=== PATIENT | female | born 1935 | race Caucasian/White ===

== ENCOUNTER 2018-01-21 09:51 | Inpatient (IN) | payer MEDICARE, BC ==
[~2018-01-21] VITALS: Ht 167.6 cm; Wt 94.1 kg
[2018-01-21] MEDS ORDERED: normal saline 1000ML IV soln IVB ONE (10:15)
[2018-01-21] MEDS ORDERED: ondansetron/PF 4mg/2ml inj IV ONE (10:15)
[2018-01-21] MEDS ORDERED: hydrocortisone sod succ/PF 100mg/2ml inj. IV ONE (10:15)
[2018-01-21 11:11] LABS: BASOPHILS % (AUTO) 0.3 % (0-1); EOSINOPHILS % (AUTO) 0 % (0-6); HEMATOCRIT 40.3 % (35.0-45.0); HEMOGLOBIN 13.9 g/dl (12.0-16.0); LYMPHOCYTES # (AUTO) 1.2 X10'3 (1.1-4.8); LYMPHOCYTES % (AUTO) 12.6 % (21-51); MEAN CORPUSCULAR HGB CONC 34.5 % (33.0-36.5); MEAN CORPUSCULAR VOLUME 92.8 FL (78-98); MEAN PLATELET VOLUME 9.1 FL (7.4-10.4); MONOCYTES % (AUTO) 9.9 % (2-12); NEUTROPHILS # (AUTO) 7.5 X10'3 (1.8-7.7); NEUTROPHILS % (AUTO) 77.2 % (42-75); PLATELET COUNT 177 X10'3 (140-440); RED BLOOD COUNT 4.34 X10'6 (4.20-5.60); RED CELL DISTRIBUTION WIDTH 13.1 % (11.5-14.5); WHITE BLOOD COUNT 9.7 X10'3 (4.5-11.0)
[2018-01-21 11:25] LABS: ALANINE AMINOTRANSFERASE 14 U/L (12-78); ALBUMIN 2.5 G/DL (3.4-5.0); ALBUMIN/GLOBULIN RATIO 0.7 (1.1-1.5); ALKALINE PHOSPHATASE 58 IU/L (46-116); ANION GAP 6 (8-16); ASPARTATE AMINO TRANSFERASE 16 U/L (10-37); BILIRUBIN,TOTAL 0.9 MG/DL (0.1-1.0); BLOOD UREA NITROGEN 14 MG/DL (7-18); BUN/CREATININE RATIO 13.5 (6.6-38.0); CALCIUM 8.2 MG/DL (8.5-10.1); CHLORIDE 101 MMOL/L (99-107); CREATININE 1.04 MG/DL (0.40-0.90); GLUCOSE 100 MG/DL (70-104); SODIUM 134 MMOL/L (135-145); eGFR 51 ML/MIN
[2018-01-21 11:39] LABS: CLARITY,URINE SLIGHTLY CLOUDY (Clear); COLOR,URINE YELLOW (Yellow); GLUCOSE, URINE NEGATIVE (Neg); KETONES,URINE 15 mg/dl (Neg); LEUKOCYTE ESTERASE ,URINE LARGE (Neg); NITRITES, URINE POSITIVE (Neg); OCCULT BLOOD,URINE SMALL (Neg); PROTEIN,URINE NEGATIVE (Neg); UROBILINOGEN,URINE 0.2 E.U/dL (0.2-1.0)
[2018-01-21 11:48] LABS: UA COLLECTION TYPE STRAIGHT CATH
[2018-01-21 11:52] LABS: MUCUS STRANDS FEW /LPF (Neg); SQUAMOUS EPITHELIAL CELL,UR FEW /LPF (FEW)
[2018-01-21 11:53] LABS: WBC CLUMPS,URINE MODERATE /HPF (NEGATIVE)
[2018-01-21 11:56] LABS: BACTERIA,URINE 2+ /HPF (Neg); RBC,URINE 0-2 /HPF (0-2); WBC,URINE TNTC /HPF (0-4)
[2018-01-21] MEDS ORDERED: gentamicin inj 350 MG in normal saline 100ml IV soln 100 ML IV STA (12:00)
[2018-01-21] MEDS ORDERED: mag hydrox/Alum hydrox/simeth 30ml oral suspension PO PRN (13:10)
[2018-01-21] MEDS ORDERED: HYDROcodone/acetaminophen 5mg/325mg tablet PO PRN (13:10)
[2018-01-21] MEDS ORDERED: ondansetron/PF 4mg/2ml inj IV PRN (13:10)
[2018-01-21] MEDS ORDERED: morphine 2 MG/ML inj. syringe IV PRN (13:10)
[2018-01-21] MEDS ORDERED: acetaminophen 325mg tablet PO PRN (13:10)
[2018-01-21] MEDS ORDERED: METH125V13 IM (13:38)
[2018-01-21] MEDS ORDERED: HYDR10TA PO ×2 (13:38→23:13)
[2018-01-21] MEDS ORDERED: CEPH500C5 PO (13:38)
[2018-01-21] MEDS ORDERED: CARB1DRO12 EACHEYE (13:38)
[2018-01-21] MEDS ORDERED: PRAS25CA7 PO (13:38)
[2018-01-21] MEDS ORDERED: CHOL10002 PO (13:38)
[2018-01-21] MEDS ORDERED: FLO0.1T PO (13:38)
[2018-01-21] MEDS: normal saline 1000ml 1,000 ML IV SCH (13:56)
[2018-01-21] MEDS: ertapenem sod inj 1 GM in normal saline 100ml IVPB IV SCH (13:57)
[2018-01-21] MEDS ORDERED: methylPREDNISolone sod succ 125mg/2ml vial IM ONE (14:35)
[2018-01-21 15:00] VITALS: BP 143/67
[2018-01-21] MEDS ORDERED: methylPREDNISolone sod succ 125mg/2ml vial IV ONE (15:15)
[2018-01-21] MEDS ORDERED: meropenem inj 1 GM in normal saline 100ml IV soln 100 ML IV SCH (16:00)
[2018-01-21 18:00] VITALS: BP 120/48
[2018-01-21] MEDS: heparin, porcine 5000 units/ml vial SQ SCH (20:20)
[2018-01-21] MEDS: hydrocortisone 10mg tablet PO SCH (20:21)
[2018-01-21] MEDS ORDERED: LEVO100T9 PO (23:13)
[2018-01-22] VITALS: BP 127/61
[2018-01-22] MEDS: normal saline 1000ml 1,000 ML IV SCH ×3 (03:30→19:28)
[2018-01-22 05:04] LABS: BASOPHILS % (AUTO) 0.4 % (0-1); EOSINOPHILS % (AUTO) 0 % (0-6); HEMATOCRIT 40.2 % (35.0-45.0); HEMOGLOBIN 13.8 g/dl (12.0-16.0); LYMPHOCYTES # (AUTO) 0.9 X10'3 (1.1-4.8); LYMPHOCYTES % (AUTO) 14.5 % (21-51); MEAN CORPUSCULAR HEMOGLOBIN 31.9 PG (27.0-31.0); MEAN CORPUSCULAR HGB CONC 34.4 % (33.0-36.5); MEAN CORPUSCULAR VOLUME 92.9 FL (78-98); MONOCYTES # (AUTO) 0.4 X10'3 (0-0.9); NEUTROPHILS # (AUTO) 5.1 X10'3 (1.8-7.7); NEUTROPHILS % (AUTO) 79.1 % (42-75); PLATELET COUNT 184 X10'3 (140-440); RED BLOOD COUNT 4.32 X10'6 (4.20-5.60); WHITE BLOOD COUNT 6.5 X10'3 (4.5-11.0)
[2018-01-22 05:20] LABS: ALBUMIN 2.4 G/DL (3.4-5.0); ANION GAP 9 (8-16); BLOOD UREA NITROGEN 16 MG/DL (7-18); BUN/CREATININE RATIO 21.1 (6.6-38.0); CALCIUM 8.5 MG/DL (8.5-10.1); CHLORIDE 104 MMOL/L (99-107); CREATININE 0.76 MG/DL (0.40-0.90); GLUCOSE 147 MG/DL (70-104); POTASSIUM 3.8 MMOL/L (3.5-5.1); SODIUM 135 MMOL/L (135-145); TOTAL CARBON DIOXIDE 22.3 MMOL/L (24-32); eGFR 73 ML/MIN
[2018-01-22] MEDS ORDERED: normal saline 1000ml 1,000 ML IV ONE (06:30)
[2018-01-22] MEDS: heparin, porcine 5000 units/ml vial SQ SCH ×2 (08:00→20:17)
[2018-01-22] MEDS ORDERED: DHEA 25mg tablet PO SCH (08:00)
[2018-01-22] MEDS ORDERED: hydrocortisone 10mg tablet PO SCH ×3 (08:30→17:30)
[2018-01-22] MEDS: hydrocortisone 10mg tablet PO SCH (08:34)
[2018-01-22] MEDS: fludrocortisone acetate 0.1mg tablet PO SCH (08:34)
[2018-01-22] MEDS: ertapenem sod inj 1 GM in normal saline 100ml IVPB IV SCH (08:35)
[2018-01-22] MEDS: polyvinyl alcohol ophthalmic drops 15ml bottle EACHEYE SCH (08:35)
[2018-01-22] MEDS ORDERED: furosemide 40mg/4ml inj IV ONE (09:15)
[2018-01-22] MEDS ORDERED: furosemide 40mg/4ml inj ONE (09:19)
[2018-01-22 11:00] VITALS: BP 112/76
[2018-01-22] MEDS ORDERED: hydrocortisone 10mg tablet PO ONE (13:10)
[2018-01-22 14:10] LABS: ALANINE AMINOTRANSFERASE 14 U/L (12-78); ALBUMIN 2.6 G/DL (3.4-5.0); ALBUMIN/GLOBULIN RATIO 0.7 (1.1-1.5); ALKALINE PHOSPHATASE 56 IU/L (46-116); ANION GAP 10 (8-16); ASPARTATE AMINO TRANSFERASE 18 U/L (10-37); BILIRUBIN,TOTAL 0.4 MG/DL (0.1-1.0); BLOOD UREA NITROGEN 15 MG/DL (7-18); BUN/CREATININE RATIO 15.5 (6.6-38.0); CALCIUM 8.7 MG/DL (8.5-10.1); CHLORIDE 105 MMOL/L (99-107); CREATININE 0.97 MG/DL (0.40-0.90); GLUCOSE 111 MG/DL (70-104); PHOSPHORUS 1.8 MG/DL (2.3-4.5); POTASSIUM 3.4 MMOL/L (3.5-5.1); SODIUM 139 MMOL/L (135-145); TOTAL CARBON DIOXIDE 24.4 MMOL/L (24-32); TOTAL PROTEIN 6.5 G/DL (6.4-8.2); eGFR 55 ML/MIN
[2018-01-22] MEDS ORDERED: potassium Cl 20 mEq SR tablet PO PRN ×2 (14:40)
[2018-01-22] MEDS ORDERED: potassium Cl 40MEQ/NS 500ml 500 ML IV PRN ×2 (14:40)
[2018-01-22 15:00] VITALS: BP 136/69
[2018-01-22] MEDS ORDERED: diltiazem 5mg/ml 5ml inj. IV ONE (18:30)
[2018-01-22] MEDS ORDERED: diltiazem-NS 100mg/100ml 100 ML IV SCH (18:30)
[2018-01-22 19:00] VITALS: BP 128/56
[2018-01-22 23:00] VITALS: BP 104/54
[2018-01-23 03:00] VITALS: BP 90/51
[2018-01-23] MEDS ORDERED: diltiazem 30mg tablet PO ONE (03:00)
[2018-01-23] MEDS: normal saline 1000ml 1,000 ML IV SCH ×2 (05:07→15:10)
[2018-01-23 06:00] VITALS: BP 101/63
[2018-01-23 06:05] LABS: BASOPHILS % (AUTO) 0.3 % (0-1); EOSINOPHILS # (AUTO) 0.1 X10'3 (0-0.9); EOSINOPHILS % (AUTO) 0.7 % (0-6); HEMATOCRIT 39.1 % (35.0-45.0); HEMOGLOBIN 13.4 g/dl (12.0-16.0); LYMPHOCYTES # (AUTO) 2.1 X10'3 (1.1-4.8); LYMPHOCYTES % (AUTO) 21.2 % (21-51); MEAN CORPUSCULAR HEMOGLOBIN 31.9 PG (27.0-31.0); MEAN CORPUSCULAR HGB CONC 34.4 % (33.0-36.5); MEAN CORPUSCULAR VOLUME 92.8 FL (78-98); MEAN PLATELET VOLUME 9.6 FL (7.4-10.4); MONOCYTES # (AUTO) 1.1 X10'3 (0-0.9); MONOCYTES % (AUTO) 10.9 % (2-12); NEUTROPHILS # (AUTO) 6.7 X10'3 (1.8-7.7); NEUTROPHILS % (AUTO) 66.9 % (42-75); PLATELET COUNT 186 X10'3 (140-440); RED BLOOD COUNT 4.21 X10'6 (4.20-5.60)
[2018-01-23 06:10] LABS: ALBUMIN 2.1 G/DL (3.4-5.0); ANION GAP 6 (8-16); BLOOD UREA NITROGEN 19 MG/DL (7-18); BUN/CREATININE RATIO 23.8 (6.6-38.0); CALCIUM 8.3 MG/DL (8.5-10.1); CHLORIDE 107 MMOL/L (99-107); GLUCOSE 102 MG/DL (70-104); POTASSIUM 3.7 MMOL/L (3.5-5.1); SODIUM 138 MMOL/L (135-145); eGFR 69 ML/MIN
[2018-01-23] MEDS ORDERED: diltiazem 30mg tablet PO SCH (08:00)
[2018-01-23] MEDS: fludrocortisone acetate 0.1mg tablet PO SCH (08:09)
[2018-01-23] MEDS: polyvinyl alcohol ophthalmic drops 15ml bottle EACHEYE SCH (08:09)
[2018-01-23] MEDS: hydrocortisone 10mg tablet PO SCH (08:09)
[2018-01-23] MEDS: levoTHYROXINE 100mcg tablet PO SCH (08:09)
[2018-01-23] MEDS: heparin, porcine 5000 units/ml vial SQ SCH ×2 (08:10→20:43)
[2018-01-23] MEDS: ertapenem sod inj 1 GM in normal saline 100ml IVPB IV SCH (08:11)
[2018-01-23 11:00] VITALS: BP 128/64
[2018-01-23] MEDS ORDERED: potassium phosphate inj 15 MMOL in normal saline 250ml IV soln 245 ML IV ONE (13:10)
[2018-01-23] MEDS: aspirin 81mg tablet.DR PO SCH (14:19)
[2018-01-23] MEDS: diltiazem CD 120mg capsule (once-daily) PO SCH (14:19)
[2018-01-23] MEDS: doxycycline hyclate 100mg tablet.DR PO SCH ×2 (14:19→20:43)
[2018-01-23 15:00] VITALS: BP 110/62
[2018-01-23] MEDS ORDERED: hydrocortisone 10mg tablet PO SCH ×2 (17:00→21:00)
[2018-01-23 19:00] VITALS: BP 132/7
[2018-01-23] MEDS: lactobacillus rhamnosus 10,000 MMU CELLS/CAPSULE PO SCH (20:43)
[2018-01-23] MEDS: Neutra Phos packet PO SCH (20:44)
[2018-01-23 23:00] VITALS: BP 119/64
[2018-01-24] MEDS: normal saline 1000ml 1,000 ML IV SCH ×2 (01:07→11:28)
[2018-01-24 03:00] VITALS: BP 146/69
[2018-01-24 05:41] LABS: ALBUMIN 2.3 G/DL (3.4-5.0); ANION GAP 10 (8-16); BLOOD UREA NITROGEN 18 MG/DL (7-18); BUN/CREATININE RATIO 21.2 (6.6-38.0); CALCIUM 8.1 MG/DL (8.5-10.1); CHLORIDE 108 MMOL/L (99-107); CREATININE 0.85 MG/DL (0.40-0.90); GLUCOSE 96 MG/DL (70-104); MAGNESIUM 1.9 MG/DL (1.5-2.4); PHOSPHORUS 2.5 MG/DL (2.3-4.5); POTASSIUM 3.7 MMOL/L (3.5-5.1); SODIUM 142 MMOL/L (135-145); TOTAL CARBON DIOXIDE 24.2 MMOL/L (24-32); eGFR 64 ML/MIN
[2018-01-24 06:00] VITALS: BP 150/76
[2018-01-24] MEDS: levoTHYROXINE 100mcg tablet PO SCH (07:16)
[2018-01-24] MEDS: doxycycline hyclate 100mg tablet.DR PO SCH (07:37)
[2018-01-24] MEDS: diltiazem CD 120mg capsule (once-daily) PO SCH (07:37)
[2018-01-24] MEDS: lactobacillus rhamnosus 10,000 MMU CELLS/CAPSULE PO SCH (07:37)
[2018-01-24] MEDS: fludrocortisone acetate 0.1mg tablet PO SCH (07:38)
[2018-01-24] MEDS: hydrocortisone 10mg tablet PO SCH (07:38)
[2018-01-24] MEDS: Neutra Phos packet PO SCH ×2 (07:38→13:00)
[2018-01-24] MEDS: aspirin 81mg tablet.DR PO SCH (07:38)
[2018-01-24] MEDS: polyvinyl alcohol ophthalmic drops 15ml bottle EACHEYE SCH (07:39)
[2018-01-24] MEDS: heparin, porcine 5000 units/ml vial SQ SCH (07:39)
[2018-01-24 11:00] VITALS: BP 135/64
[2018-01-24] MEDS ORDERED: CARCD120C PO (11:31)
[2018-01-24] MEDS ORDERED: DOXY-200 PO (11:31)
[2018-01-24] MEDS ORDERED: ASPI-1071 PO (11:31)
== END 2018-01-24 13:50 | disposition home or self-care (01) | DRG 690 ==
LOC: ER 09:52 → ED HOLD 13:07 → SUR 3N 14:28 → PCU 3S 01-22 15:25
PROVIDERS: ADMIT Family Medicine; ATTEND Internal Medicine
PROC: CT231ZZ Tomographic (Tomo) Nuclear Medicine Imaging of Kidneys, Ureters and Bladder using Technetium 99m (Tc-99m) (ICD-10-PCS; principal; 2018-01-22)
DX: N10 Acute pyelonephritis (principal); E27.1 Primary adrenocortical insufficiency; I48.91 Unspecified atrial fibrillation; N18.2 Chronic kidney disease, stage 2 (mild); E06.3 Autoimmune thyroiditis; K21.9 Gastro-esophageal reflux disease without esophagitis; M19.90 Unspecified osteoarthritis, unspecified site; M85.80 Other specified disorders of bone density and structure, unspecified site; Z90.49 Acquired absence of other specified parts of digestive tract; Z90.710 Acquired absence of both cervix and uterus; Z88.1 Allergy status to other antibiotic agents; Z91.041 Radiographic dye allergy status; Z88.2 Allergy status to sulfonamides; Z88.8 Allergy status to other drugs, medicaments and biological substances; Z91.048 Other nonmedicinal substance allergy status; Z79.899 Other long term (current) drug therapy; Z86.010 Personal history of colon polyps
CPT/HCPCS: 36415; 71045; 78708; 80048; 80053; 81001; 83735; 84100; 84443; 84484; 85025; 87040; 87070; 87088; 93005; 93306; 96361; 96374; 96375; 97110; 97116; 97161; 99285; A4310; A9562; J1335; J1580; J1644; J1720; J1940; J2185; J2405; J2930; J3490; J7030